=== PATIENT | female | born 1935 | race Caucasian/White ===

== ENCOUNTER 2018-01-19 14:56 | Emergency (ER) | payer MEDICARE, OTHER ==
[~2018-01-19] VITALS: Ht 165.1 cm; Wt 40.0 kg
[~2018-01-19 14:56] MED LIST: ATIVAN1 MG PO; CALCIUM 600 +1 EAC1; CALCIUM 600 +1 EAC1 PO; CELEXA10 MG PO; COMPLETE MULTI1 EAC2; FOLIC ACID 40400 MCG PO; IRON PO; KLOR-CON 1010 MEQ PO; LASIX 40 MG TAB40 M2 PO; LATANOPROST 0.2.5 ML OPHTHALMIC; LEVOTHYROXIN0.075 MG PO; LEVOTHYROXINE0.05 MG PO; MAGNESIUM PO; METHOTREXATE 22.5 MG SUBQ; METHOTREXATE SUBQ; MIRAPEX 0.250.25 M1 PO; MOBIC15 MG PO; NEURONTIN 300300 M1 PO; NORCO 10-325 T1 EACH PO; OMEPRAZOLE 20 M20 MG PO; PREDNISONE 5 MG5 M1 PO; PRILOSEC20 MG; PROLIA60 MG/1 ML; PROLIA60 MG/1 ML INJECTION; REQUIP0.5 MG PO; VITAMIN C PO; VITAMINC500; WOMAN'S LAXATIVE5 M1 PO; XANAX 0.5 MG0.5 MG PO; ZOLOFT50 MG PO
[2018-01-19] MEDS ORDERED: IRON325 PO (15:29)
[2018-01-19] MEDS ORDERED: BUSPIRONE HCL10 MG PO (15:29)
[2018-01-19] MEDS ORDERED: DONEPEZIL HCL 55 M1 PO (15:30)
[2018-01-19] MEDS ORDERED: CLONAZEPAM 0.50.5 M1 PO (15:30)
[2018-01-19] MEDS ORDERED: DIAPER RASH OIN56 GM TOP (15:30)
[2018-01-19] MEDS ORDERED: MIRALAX17 GM PO (15:31)
[2018-01-19] MEDS ORDERED: TYLENOL325 MG PO (15:31)
[2018-01-19] MEDS ORDERED: VENTOLIN HFA 1818 GM INH (15:31)
[2018-01-19] MEDS ORDERED: SENEXON-S TABL1 EACH PO (15:31)
[2018-01-19] MEDS ORDERED: DULCOLAX5 MG PO (15:32)
[2018-01-19 17:28] VITALS: BP 110/52
== END 2018-01-19 17:31 | disposition home or self-care (01) ==
LOC: M.ERS 14:56
DX: S50.02XA Contusion of left elbow, initial encounter (principal); E03.9 Hypothyroidism, unspecified; K21.9 Gastro-esophageal reflux disease without esophagitis; F32.9 Major depressive disorder, single episode, unspecified; Z88.1 Allergy status to other antibiotic agents; Z88.2 Allergy status to sulfonamides; Z88.8 Allergy status to other drugs, medicaments and biological substances; Z85.118 Personal history of other malignant neoplasm of bronchus and lung; W18.39XA Other fall on same level, initial encounter; Y93.89 Activity, other specified; Y92.89 Other specified places as the place of occurrence of the external cause; Y99.8 Other external cause status

== ENCOUNTER 2018-07-03 09:58 | Emergency (ER) | payer MEDICARE, OTHER ==
[~2018-07-03] VITALS: Ht 165.1 cm; Wt 65.8 kg
[~2018-07-03 09:58] MED LIST changes: +BUSPIRONE HCL10 MG PO; +CLONAZEPAM 0.50.5 M1 PO; +DIAPER RASH OIN56 GM TOP; +DONEPEZIL HCL 55 M1 PO; +DULCOLAX5 MG PO; +IRON325 PO; +MIRALAX17 GM PO; +SENEXON-S TABL1 EACH PO; +TYLENOL325 MG PO; +VENTOLIN HFA 1818 GM INH
[2018-07-03] MEDS ORDERED: VISTARIL 25 MG25 M1 PO (10:12)
[2018-07-03] MEDS ORDERED: ZOLOFT 50 MG TA50 MG PO (10:12)
[2018-07-03] MEDS ORDERED: MAPAP500 M1 PO (10:13)
[2018-07-03 10:35] LABS: HEMATOCRIT 44.2 % (37.0-47.0); HEMOGLOBIN 14.4 gm/dL (12.0-15.0); MCH 31.7 pg (26.0-34.0); MCHC 32.6 g/dL (28.0-37.0); MCV 97.1 fL (80.0-100.0); MPV 7.2 fl. (7.2-11.1); NUCLEATED RBCS 0 /100WBC; PLATELET COUNT* 239 thou/uL (150-400); RBC 4.55 mil/uL (4.20-5.00); RDW-CV 14.6 % (10.5-14.5)
[2018-07-03 10:45] LABS: CALCIUM 8.7 mg/dL (8.5-10.1); CREATININE 0.5 mg/dL (0.6-1.3); POTASSIUM 4.3 mmol/L (3.5-5.1)
[2018-07-03 10:46] LABS: APTT 26.5 Seconds (25.0-31.3); INR 1.1; PROTIME 10.5 Seconds (9.20-11.50)
[2018-07-03 10:53] LABS: URINE BILIRUBIN NEGATIVE (Negative); URINE BLOOD 1+ (Negative); URINE CLARITY CLEAR; URINE COLOR YELLOW; URINE GLUCOSE-RANDOM NEGATIVE (Negative); URINE KETONES NEGATIVE (Negative); URINE LEUKOCYTES-REFLEX 1+ (Negative); URINE PROTEIN NEGATIVE (Negative); URINE UROBILINOGEN 0.2 E.U./dl (0.2-1.0)
[2018-07-03 10:54] LABS: ABSOLUTE EOSINOPHILS 0.2 thou/uL (0.0-0.7); ABSOLUTE LYMPHOCYTES 0.5 thou/uL (0.8-5.3); ABSOLUTE MONOCYTES 0.3 thou/uL (0.0-1.2)
[2018-07-03 10:55] LABS: URINE NITRITE-REFLEX POSITIVE (Negative)
[2018-07-03 10:55] LABS: ALBUMIN 3.3 g/dL (3.4-5.0); ANISOCYTOSIS 1+; PLATELET ESTIMATE ADEQUATE; POIKILOCYTOSIS 1+; TOTAL BILIRUBIN 0.3 mg/dL (<0.1-1.0); TOTAL PROTEIN 7.2 g/dL (6.4-8.2)
[2018-07-03 11:02] LABS: BACTERIA-REFLEX >30 Many /HPF (None Seen); CASTS None Seen /LPF (None Seen); CRYSTALS None Seen /LPF (None Seen); MUCUS 0-3 Light strn/LPF (None Seen); SQUAMOUS 0-3 Few /LPF (0-3); URINE RBC 0-2 Rare /HPF (0-2); URINE WBC-REFLEX 6-15 Few /HPF (0-5)
[2018-07-03 11:49] VITALS: BP 113/49
--- NOTE | 2018-07-03 15:05 | EKG ---
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: : 1935 Requested By: Allen Sher Order Number: [id number] MD: Oni Lizarraga Measurements Intervals [place] Rate: 58 P: 14 NV: 33 QRS: -16 QRSD: 163 T: 94 QT: 518 QTc: 509 Interpretive Statements Sinus rhythm Left bundle branch block Compared to ECG 09/24/2017 20:43:56 Left bundle-branch block now present Left ventricular hypertrophy no longer present Myocardial infarct finding no longer present Electronically Signed On 07-03-2018 15:05:31 CDT by Oni Lizarraga [email or web address] <ELECTRONICALLY SIGNED> By: Oni Lizarraga MD, [facility] 07/03/18 [id number] Oni Lizarraga MD, [facility] /EPI
== END 2018-07-03 11:49 | disposition home or self-care (01) ==
LOC: M.ERS 09:58
PROVIDERS: Family Medicine
DX: S00.03XA Contusion of scalp, initial encounter (principal); S00.83XA Contusion of other part of head, initial encounter; K21.9 Gastro-esophageal reflux disease without esophagitis; E03.9 Hypothyroidism, unspecified; G30.9 Alzheimer's disease, unspecified; M06.9 Rheumatoid arthritis, unspecified; F32.9 Major depressive disorder, single episode, unspecified; Z85.118 Personal history of other malignant neoplasm of bronchus and lung; Z90.49 Acquired absence of other specified parts of digestive tract; Z88.1 Allergy status to other antibiotic agents; Z88.2 Allergy status to sulfonamides; Z88.8 Allergy status to other drugs, medicaments and biological substances; W18.39XA Other fall on same level, initial encounter; Y93.89 Activity, other specified; Y92.128 Other place in nursing home as the place of occurrence of the external cause; Y99.8 Other external cause status

== ENCOUNTER 2018-07-10 17:15 | Emergency (ER) | payer MEDICARE, OTHER ==
[~2018-07-10] VITALS: Ht 157.5 cm; Wt 51.3 kg
[~2018-07-10 17:15] MED LIST changes: +MAPAP500 M1 PO; +VISTARIL 25 MG25 M1 PO; +ZOLOFT 50 MG TA50 MG PO
[2018-07-10] MEDS ORDERED: [UNRECOGNIZED DRUG - REMARK] PO (17:35)
[2018-07-10 18:58] VITALS: BP 103/68
== END 2018-07-10 18:59 | disposition home or self-care (01) ==
LOC: M.ERS 17:15
DX: S09.90XA Unspecified injury of head, initial encounter (principal); S43.081A Other subluxation of right shoulder joint, initial encounter; W19.XXXA Unspecified fall, initial encounter; Y93.89 Activity, other specified; Y92.89 Other specified places as the place of occurrence of the external cause; Y99.8 Other external cause status; G30.9 Alzheimer's disease, unspecified; F02.80 Dementia in other diseases classified elsewhere, unspecified severity, without behavioral disturbance, psychotic disturbance, mood disturbance, and anxiety; M19.90 Unspecified osteoarthritis, unspecified site; E03.9 Hypothyroidism, unspecified; F32.9 Major depressive disorder, single episode, unspecified; Z85.118 Personal history of other malignant neoplasm of bronchus and lung; Z90.49 Acquired absence of other specified parts of digestive tract; Z88.1 Allergy status to other antibiotic agents; Z88.2 Allergy status to sulfonamides; Z88.8 Allergy status to other drugs, medicaments and biological substances; K21.9 Gastro-esophageal reflux disease without esophagitis

== ENCOUNTER 2018-08-08 06:49 | Emergency (ER) | payer MEDICARE, OTHER ==
[~2018-08-08] VITALS: Ht 160 cm; Wt 47.6 kg
[~2018-08-08 06:49] MED LIST changes: +[UNRECOGNIZED DRUG - REMARK] PO
[2018-08-08 07:14] LABS: HEMATOCRIT 37.5 % (37.0-47.0); HEMOGLOBIN 12.4 gm/dL (12.0-15.0); MCH 31.8 pg (26.0-34.0); MCV 96.5 fL (80.0-100.0); MPV 7.6 fl. (7.2-11.1); NUCLEATED RBCS 0 /100WBC; PLATELET COUNT* 258 thou/uL (150-400); RBC 3.89 mil/uL (4.20-5.00); RDW-CV 14.1 % (10.5-14.5); WBC 6.1 thou/uL (4.0-11.0)
[2018-08-08 07:19] LABS: INR 1.1
[2018-08-08 07:20] LABS: ANION GAP 5 mmol/L (7-16); BUN 17 mg/dL (7-18); CALCIUM 8.6 mg/dL (8.5-10.1); CHLORIDE 100 mmol/L (98-107); CO2 34 mmol/L (21-32); CREATININE 0.6 mg/dL (0.6-1.3); GLUCOSE 93 mg/dL (70-99); POTASSIUM 3.6 mmol/L (3.5-5.1); SODIUM 139 mmol/L (136-145)
[2018-08-08 07:28] LABS: ALBUMIN 2.8 g/dL (3.4-5.0); ALKALINE PHOSPHATASE 126 U/L (46-116); NT-PRO BRAIN NAT PEPTIDE 752 pg/mL (<300); SGOT 33 U/L (15-37); SGPT 39 U/L (30-65); TOTAL BILIRUBIN 0.3 mg/dL (<0.1-1.0); TOTAL PROTEIN 6.8 g/dL (6.4-8.2); TROPONIN-I LEVEL <0.06 ng/mL (<0.06)
[2018-08-08 07:42] LABS: URINE BILIRUBIN NEGATIVE (Negative); URINE BLOOD 3+ (Negative); URINE CLARITY CLEAR; URINE COLOR YELLOW; URINE GLUCOSE-RANDOM NEGATIVE (Negative); URINE KETONES NEGATIVE (Negative); URINE LEUKOCYTES-REFLEX NEGATIVE (Negative); URINE NITRITE-REFLEX NEGATIVE (Negative); URINE PROTEIN NEGATIVE (Negative); URINE SPECIFIC GRAVITY 1.015 (1.005-1.030); URINE UROBILINOGEN 0.2 E.U./dl (0.2-1.0)
[2018-08-08 08:27] LABS: ABSOLUTE MONOCYTES 0.7 thou/uL (0.0-1.2); ABSOLUTE NEUTROPHILS 4.3 thou/uL (1.6-8.1)
[2018-08-08 08:29] LABS: LARGE PLATELETS RARE; PLATELET ESTIMATE ADEQUATE
[2018-08-08 08:44] LABS: SQUAMOUS 0-3 Few /LPF (0-3); URINE WBC-REFLEX 0-5 Rare /HPF (0-5)
[2018-08-08 08:45] LABS: BACTERIA-REFLEX >30 Many /HPF (None Seen)
[2018-08-08 08:46] LABS: MUCUS None Seen strn/LPF (None Seen)
[2018-08-08 08:47] LABS: CASTS None Seen /LPF (None Seen); CRYSTALS None Seen /LPF (None Seen)
[2018-08-08 09:13] VITALS: BP 117/50
--- NOTE | 2018-08-08 11:43 | EKG ---
[place] [address] ELECTROCARDIOGRAM REPORT Name: RAMESH VARGHESE Room: [facility]#: [id number] Admission: 08/08/18 Attend Phys: Discharge: 08/08/18 Date of : 39 Report #: [id number] THIS REPORT FOR: //name// [facility] ED Test Date: 2018-08-08 Test Time: 07:03:17 Pat Name: RAMESH VARGHESE Department: Room: Gender: F Pile Trimmer: LEO Bocanegra : 1935 Requested By: Quita Read Order Number: [id number] MD: Jenaro Jackson Measurements Intervals [place] Rate: 72 P: [place]: QRS: -21 QRSD: 155 T: 105 QT: 458 QTc: 502 Interpretive Statements Accelerated junctional rhythm Left bundle branch block Compared to ECG 07/03/2018 10:18:08 Accelerated junctional rhythm now present Sinus rhythm no longer present Electronically Signed On 08-08-2018 11:43:26 CDT by Jenaro Jackson [email or web address] <ELECTRONICALLY SIGNED> By: Jenaro Jackson MD, [facility] 08/08/18 [id number] Jenaro Jackson MD, [facility] /EPI
== END 2018-08-08 09:18 | disposition home or self-care (01) ==
LOC: M.ERS 06:49
PROVIDERS: Emergency Medicine
DX: M25.532 Pain in left wrist (principal); M25.512 Pain in left shoulder; M25.521 Pain in right elbow; K21.9 Gastro-esophageal reflux disease without esophagitis; M06.9 Rheumatoid arthritis, unspecified; F32.9 Major depressive disorder, single episode, unspecified; G30.9 Alzheimer's disease, unspecified; F02.80 Dementia in other diseases classified elsewhere, unspecified severity, without behavioral disturbance, psychotic disturbance, mood disturbance, and anxiety; G25.81 Restless legs syndrome; Z90.49 Acquired absence of other specified parts of digestive tract; Z85.118 Personal history of other malignant neoplasm of bronchus and lung; Z88.2 Allergy status to sulfonamides; Z88.1 Allergy status to other antibiotic agents; Z88.8 Allergy status to other drugs, medicaments and biological substances; W18.39XA Other fall on same level, initial encounter; Y93.89 Activity, other specified; Y92.89 Other specified places as the place of occurrence of the external cause; Y99.8 Other external cause status

== ENCOUNTER 2018-09-17 21:37 | Inpatient (IN) | payer MEDICARE, OTHER ==
[~2018-09-17] VITALS: Ht 160 cm; Wt 49.9 kg
[2018-09-17 21:38] VITALS: BP 136/58
[2018-09-17 23:36] LABS: HEMATOCRIT 39.7 % (37.0-47.0); HEMOGLOBIN 12.8 gm/dL (12.0-15.0); MCH 31.1 pg (26.0-34.0); MCHC 32.3 g/dL (28.0-37.0); MCV 96.1 fL (80.0-100.0); NUCLEATED RBCS 0 /100WBC; PLATELET COUNT* 295 thou/uL (150-400); RBC 4.13 mil/uL (4.20-5.00); RDW-CV 14.7 % (10.5-14.5); WBC 5.5 thou/uL (4.0-11.0)
[2018-09-17 23:52] LABS: CALCIUM 8.4 mg/dL (8.5-10.1); CREATININE 0.6 mg/dL (0.6-1.3)
[2018-09-17 23:57] LABS: ALBUMIN 2.9 g/dL (3.4-5.0); TOTAL BILIRUBIN 0.2 mg/dL (<0.1-1.0); TOTAL PROTEIN 6.1 g/dL (6.4-8.2)
[2018-09-18] VITALS (8 sets, daily range): BP systolic 96–137; BP diastolic 37–67
[2018-09-18 01:10] LABS: URINE BILIRUBIN NEGATIVE (Negative); URINE BLOOD 1+ (Negative); URINE CLARITY CLEAR; URINE COLOR YELLOW; URINE GLUCOSE-RANDOM NEGATIVE (Negative); URINE KETONES NEGATIVE (Negative); URINE LEUKOCYTES-REFLEX 1+ (Negative); URINE NITRITE-REFLEX POSITIVE (Negative); URINE PROTEIN NEGATIVE (Negative); URINE SPECIFIC GRAVITY 1.015 (1.005-1.030); URINE UROBILINOGEN 0.2 E.U./dl (0.2-1.0)
[2018-09-18 01:20] LABS: SQUAMOUS 0-3 Few /LPF (0-3)
[2018-09-18 01:21] LABS: BACTERIA-REFLEX >30 Many /HPF (None Seen); CASTS None Seen /LPF (None Seen); CRYSTALS None Seen /LPF (None Seen); MUCUS 0-3 Light strn/LPF (None Seen); URINE RBC 3-10 Few /HPF (0-2); URINE WBC-REFLEX 6-15 Few /HPF (0-5)
[2018-09-18 01:26] LABS: ABSOLUTE EOSINOPHILS 0.2 thou/uL (0.0-0.7); ABSOLUTE LYMPHOCYTES 0.4 thou/uL (0.8-5.3); ABSOLUTE MONOCYTES 0.4 thou/uL (0.0-1.2); ABSOLUTE NEUTROPHILS 4.5 thou/uL (1.6-8.1); ANISOCYTOSIS Occasional; PLATELET ESTIMATE ADEQUATE
[2018-09-19 04:39] LABS: HEMATOCRIT 39.7 % (37.0-47.0); HEMOGLOBIN 12.9 gm/dL (12.0-15.0); MCH 31.2 pg (26.0-34.0); MCHC 32.6 g/dL (28.0-37.0); MCV 95.5 fL (80.0-100.0); MPV 7.2 fl. (7.2-11.1); RBC 4.16 mil/uL (4.20-5.00); RDW-CV 14.7 % (10.5-14.5); WBC 5.9 thou/uL (4.0-11.0)
[2018-09-19 04:58] LABS: CALCIUM 8.9 mg/dL (8.5-10.1); CREATININE 0.5 mg/dL (0.6-1.3); MAGNESIUM 1.7 mg/dL (1.8-2.4); POTASSIUM 3.4 mmol/L (3.5-5.1)
[2018-09-19 09:00] VITALS: BP 125/55
[2018-09-19 16:36] VITALS: BP 110/49
[2018-09-19 21:02] LABS: MAGNESIUM 1.7 mg/dL (1.8-2.4); POTASSIUM 3.6 mmol/L (3.5-5.1)
[2018-09-20 00:10] VITALS: BP 129/56
[2018-09-20 04:17] LABS: CALCIUM 8.5 mg/dL (8.5-10.1); CREATININE 0.5 mg/dL (0.6-1.3); MAGNESIUM 1.7 mg/dL (1.8-2.4)
[2018-09-20 07:55] VITALS: BP 133/51
[2018-09-20 16:13] VITALS: BP 110/48
[2018-09-20 20:41] VITALS: BP 117/53
[2018-09-21 07:40] VITALS: BP 129/60
[2018-09-21 17:10] VITALS: BP 111/62
[2018-09-21 21:11] VITALS: BP 102/55
[2018-09-22] VITALS: BP 159/85
[2018-09-22 04:00] VITALS: BP 134/62
[2018-09-22 07:40] VITALS: BP 131/77
[2018-09-22 11:20] VITALS: BP 144/74
[2018-09-22 16:00] VITALS: BP 149/76
[2018-09-22 23:25] VITALS: BP 164/63
[2018-09-23] MEDS ORDERED: CLONAZEPAM0.25 MG PO (06:44)
[2018-09-23] MEDS ORDERED: NEURONTIN 300300 M1 PO (06:45)
[2018-09-23] MEDS ORDERED: BUSPIRONE HCL10 MG PO (06:46)
[2018-09-23] MEDS ORDERED: MIRALAX17 GM PO (06:47)
[2018-09-23] MEDS ORDERED: PREDNISONE 5 MG5 M1 PO (06:48)
[2018-09-23] MEDS ORDERED: SYNTHROID88 MCG PO (06:49)
[2018-09-23] MEDS ORDERED: IRON325 PO (06:49)
[2018-09-23] MEDS ORDERED: OMEPRAZOLE20 M1 PO (06:50)
[2018-09-23] MEDS ORDERED: SENNA8.6 MG PO (06:51)
[2018-09-23] MEDS ORDERED: METHOTREXATE 22.5 MG PO (06:51)
[2018-09-23 08:00] VITALS: BP 128/68
[2018-09-23 16:00] VITALS: BP 101/61
[2018-09-23 23:39] VITALS: BP 110/57
[2018-09-24 07:30] VITALS: BP 109/57
[2018-09-24 14:04] LABS: URINE BILIRUBIN NEGATIVE (Negative); URINE BLOOD 2+ (Negative); URINE CLARITY CLEAR; URINE COLOR STRAW; URINE GLUCOSE-RANDOM NEGATIVE (Negative); URINE KETONES TRACE (Negative); URINE LEUKOCYTES-REFLEX NEGATIVE (Negative); URINE NITRITE-REFLEX NEGATIVE (Negative); URINE PROTEIN TRACE (Negative); URINE SPECIFIC GRAVITY >= 1.030 (1.005-1.030); URINE UROBILINOGEN 0.2 E.U./dl (0.2-1.0)
[2018-09-24 14:22] LABS: SQUAMOUS 4-10 Moderate /LPF (0-3)
[2018-09-24 14:23] LABS: BACTERIA-REFLEX 1-9 Few /HPF (None Seen); CASTS None Seen /LPF (None Seen); MUCUS 0-3 Light strn/LPF (None Seen); URINE RBC 0-2 Rare /HPF (0-2)
[2018-09-24 14:24] LABS: CRYSTALS None Seen /LPF (None Seen); URINE WBC-REFLEX 0-5 Rare /HPF (0-5)
[2018-09-24 16:00] VITALS: BP 100/59
[2018-09-25 00:08] VITALS: BP 121/57
[2018-09-25 04:00] VITALS: BP 100/54
[2018-09-25 09:30] VITALS: BP 102/54
[2018-09-25] MEDS ORDERED: LEVAQUIN 750 M750 MG PO (11:44)
[2018-09-25] MEDS ORDERED: ZOLOFT50 MG PO (13:18)
[2018-09-25 13:20] VITALS: BP 102/54
== END 2018-09-25 16:55 | DRG 689 ==
LOC: M.ERS 21:37 → M.TBA-ER 09-18 02:07 → M.3W 09-18 02:07
PROVIDERS: Emergency Medicine; Internal Medicine; ADMIT Internal Medicine
DX: N39.0 Urinary tract infection, site not specified (principal); G92 Toxic encephalopathy; E44.0 Moderate protein-calorie malnutrition; Z68.1 Body mass index [BMI] 19.9 or less, adult; G30.9 Alzheimer's disease, unspecified; F02.80 Dementia in other diseases classified elsewhere, unspecified severity, without behavioral disturbance, psychotic disturbance, mood disturbance, and anxiety; E03.9 Hypothyroidism, unspecified; K21.9 Gastro-esophageal reflux disease without esophagitis; M06.9 Rheumatoid arthritis, unspecified; F32.9 Major depressive disorder, single episode, unspecified; G25.81 Restless legs syndrome; K59.00 Constipation, unspecified; Z98.42 Cataract extraction status, left eye; Z98.41 Cataract extraction status, right eye; Z80.0 Family history of malignant neoplasm of digestive organs; Z85.118 Personal history of other malignant neoplasm of bronchus and lung; Z90.49 Acquired absence of other specified parts of digestive tract; Z88.2 Allergy status to sulfonamides; Z88.8 Allergy status to other drugs, medicaments and biological substances; Z79.899 Other long term (current) drug therapy